=== PATIENT | female | born 1945 ===

== ENCOUNTER → 2017-03-30 | Day surgery (SDC) | payer MEDICARE ==
[2017-03-28 09:49] VITALS: BMI 35.6
[~2017-03-30] MED LIST: HEPARIN SODIUM/NS 1,000 ML IV ONE; HEPARIN SODIUM/NS 2,000 ML IV ONE; Iodixanol 320 MG/ML 100 ML BOTTLE IV ONE; Iodixanol 320 MG/ML 200 ML BOTTLE IV ONE; Iohexol 350mgl/ml 50 ML ONE; Lidocaine 2% Inj (20ml) ONE; Midazolam 2 MG/2 ML VIAL ONE; Phenylephrine 10 mg/ml Inj ONE; Sodium Chloride 0.9% 1,000 ML IV SCH
[2017-03-30 07:47] LABS: BASO # 0.02 K/mm3 (0.0-2.0); BASO % 0.2 % (0.0-3.0); EOS # 0.3 (0.0-0.7); EOS % 3.5 % (1.5-5.0); GRAN # 6.33 (1.4-6.5); GRAN % 69.4 % (50.0-68.0); HEMATOCRIT 39.8 % (36.0-48.0); LYMPH # 1.8 (1.2-3.4); LYMPH % 19.2 % (22.0-35.0); MEAN CELL VOLUME 100.3 fl (80.0-105.0); MEAN CORPUSCULAR HGB CONC 32.9 g/dl (31.0-37.0); MEAN PLATELET VOLUME 10.7 fl (7.0-11.0); MONO # 0.7 (0.1-0.6); MONO % 7.7 % (1.0-6.0); RED CELL DISTRIBUTION WIDTH 13.6 % (11.5-14.5); WHITE BLOOD COUNT 9.1 10^3/ul (4.5-11.0)
[2017-03-30 08:17] LABS: BLOOD UREA NITROGEN 16 mg/dL (7-21); CALCIUM 9.1 mg/dL (8.4-10.5); CARBON DIOXIDE 27 mmol/L (21-33); CHLORIDE 105 mmol/L (98-107); GFR AFRICAN-AMERICAN > 60; GLUCOSE,RANDOM 106 mg/dL (70-110); POTASSIUM 3.8 mmol/L (3.6-5.0); SODIUM 144 mmol/L (132-148)
[2017-03-30 08:22] LABS: CHOLESTEROL 169 mg/dL (130-200)
[2017-03-30 08:46] LABS: INR 1.22 (0.93-1.08); PARTIAL THROMBOPLASTIN TIME 30.7 Seconds (25.1-36.5)
[2017-03-30 11:46] VITALS: RESP 18; TEMP 97.4
--- NOTE | 2017-03-30 13:24 | CARDCATH ---
PROCEDURE DATE: 03/30/2017 CARDIAC CATHETERIZATION HISTORY: The patient is a 71-year-old woman who presents with exertional dyspnea. Echocardiogram reveals aortic stenosis. Because of this, cardiac catheterization was recommended. PROCEDURE: 1. Right and left heart catheterization with coronary artery and supra-aortic valvular injection as well as LV gram. 2. The right femoral artery was cannulated with a 6-Tanzanian sheath. The right femoral vein was cannulated with a 7-T[place] sheath. There were no complications. DESCRIPTION OF THE PROCEDURE: I performed moderate sedation which included the presence of an independent trained observer that assisted in monitoring the patient's level of consciousness and physiologic status. After administration of Versed and fentanyl, my intra-service time was 30 minutes. FINDINGS: 1. The findings on catheterization included hemodynamic data which revealed a right atrial pressure of 8 mmHg. 2. The RV pressure was 37/10 mmHg, the pulmonary artery pressures were 35/18 mmHg with a mean of 22 mmHg. 3. Mean capillary wedge pressure was approximately 10 mmHg. 4. Simultaneous LV and supra-aortic valvular pressure measurements revealed a [id number]-jk-noic gradient of 20 mmHg. 5. Angiographic studies included a supra-aortic valvular injection which revealed no aortic insufficiency. 6. The LV gram was performed in the MURILLO projection. The MURILLO projection, wall motion is within normal limits. Estimated ejection fraction is approximately 55%. 7. Her coronary anatomy revealed a left dominant circulation. 8. The RCA was visualized and found to have intimal irregularities without significant stenoses. 9. The left main artery was unremarkable. 10. The LAD and diagonal vessels revealed intimal irregularities without significant stenoses. 11. The circumflex artery and obtuse marginal branches revealed intimal irregularities without significant stenoses. 12. Manual compression was used to close the femoral artery site. The patient tolerated the procedure well. IMPRESSION: In summary: 1. The procedure revealed mild aortic stenosis. 2. Nonobstructive coronary artery disease with diffuse atherosclerosis without critical lesions. 3. Left ventricular function is preserved with an ejection fraction of approximately 55%. 4. No aortic insufficiency. PLAN: Given these findings, the patient's treatment will be continued medical therapy. We will need to survey and monitor her aortic valve and stenoses with serial echoes over the next every 6 months. We will need to see whether she progresses to more critical aortic stenosis which may require aortic valve replacement in the future. Thor Ovalle MD [facility] # [id number]
[2017-03-30 15:02] VITALS: O2SAT 94
[2017-03-30 15:32] VITALS: BP 152/87; PULSE 76
== END | disposition home or self-care (01) ==
LOC: CATH 06:49
PROVIDERS: ATTEND Internal Medicine Cardiovascular Disease
DX: I25.10 Atherosclerotic heart disease of native coronary artery without angina pectoris (principal); I35.0 Nonrheumatic aortic (valve) stenosis